=== PATIENT | female | born 1960 | race Hispanic/Latino ===

== ENCOUNTER 2017-12-06 00:05 | Emergency (ER) | payer OTHER ==
[~2017-12-06] VITALS: Ht 154.9 cm; Wt 49.0 kg
[~2017-12-06 00:05] MED LIST: ARIPIPRAZOLE; CLINDAMYCIN HC150 MG PO; DILAUDID4 MG PO; LORTAB; METHADONE HCL10 MG; NEXIUM40 MG PO; TYLENOL WITH C1 EACH PO; Z.0.ATIVAN1 MG; Z.0.LORTAB 7.5-5001; Z.0.ZOLOFT100 MG; [UNRECOGNIZED DRUG - OTHER]
--- NOTE | 2017-12-06 01:18 | Diagnostic Imaging Report ---
Exams: Head and cervical spine CTs without IV contrast History: Trauma Comparison studies: Head CT 05/19/2014. Technique: Axial images were obtained from the brain and cervical spine. Coronal and sagittal images reconstructed from the axial data. Intravenous contrast: None Findings: Head CT: Scalp: No abnormalities. Bones: No fractures, blastic or lytic lesions. Extra-axial spaces: No masses. No fluid collections. Brain sulci: Appropriate for age. Ventricles: Normal in size and configuration. No hydrocephalus. Parenchyma: A few scattered hypodensities in the supratentorial white matter are nonspecific but most compatible with chronic small vessel ischemic changes. No masses, hemorrhage, acute or chronic vascular insults. Sellar/suprasellar region: No abnormalities. Craniocervical junction: The foramen magnum is patent. No Chiari one malformation. Cervical spine CT: Fractures: None. Soft tissues: No gross acute abnormalities. Atlantoaxial articulation: Intact. Alignment: Strain cervical curvature may be positional. Mild cervical curvature convex to the right. Approximately 2 mm anterolisthesis of C5 on C6 may be degenerative in etiology. Cervicomedullary junction: No abnormalities. The foramen magnum is patent. Vertebrae: No infection or neoplasm. Degenerative changes: Moderate facet arthrosis on the left at C2-C3, mild facet arthrosis bilaterally at C3-C4 and on the left at C4-C5 and severe facet arthrosis on the left at C5-C6. Anterolisthesis of C5 on C6 with associated uncovered disc and small central disc protrusion result in mild canal stenosis. Mild foraminal stenosis on the left at C2-C3 due to uncovertebral and facet arthrosis. Incidental findings: Physiologic calcifications in the globi pallidi. Atherosclerotic calcifications in the cervical carotid bulbs, in the carotid siphons an right intradural vertebral artery. IMPRESSION: Head CT: 1. No acute abnormalities. 2. Mild supratentorial chronic microvascular ischemic changes. 3. No changes from the previous head CT of 05/19/2014. Cervical spine CT: 1. No cervical spine fracture. 2. Mild anterolisthesis of C5 on C6 may be degenerative in etiology. 3. Degenerative changes as described. 4. Cannot adequately evaluate for ligament, spinal cord and or vascular abnormalities on the basis of this examination. Signed by: Dr. Reggie Colmenares M.D. on 12/06/2017 1:15 AM
[2017-12-06] MEDS ORDERED: ONDANSETRON HCL 4 MG ORAL DISINTEGRATING TAB PO ONE (01:45)
[2017-12-06] MEDS ORDERED: HYDROCODONE/APAP 5MG-325MG TAB PO ONE (01:45)
[2017-12-06 04:09] VITALS: BP 112/62
[2017-12-06] MEDS ORDERED: SODIUM BICARBONATE 8.4% SYRING 50 ML ONE (08:05)
== END 2017-12-06 05:31 | disposition home or self-care (01) ==
LOC: ER 00:05
DX: S00.83XA Contusion of other part of head, initial encounter (principal); M54.2 Cervicalgia; Y08.89XA Assault by other specified means, initial encounter; Y92.008 Other place in unspecified non-institutional (private) residence as the place of occurrence of the external cause; F17.210 Nicotine dependence, cigarettes, uncomplicated
CPT/HCPCS: 70450; 72125; 99283

== ENCOUNTER 2017-12-28 02:43 | Emergency (ER) | payer OTHER ==
[~2017-12-28] VITALS: Ht 154.9 cm; Wt 49.0 kg
[2017-12-28] MEDS ORDERED: CLONIDINE HCL 0.1 MG TAB PO ONE (03:45)
== END 2017-12-28 04:20 | disposition left against medical advice (07) ==
LOC: ER 02:43
DX: R51 Headache (principal); F31.9 Bipolar disorder, unspecified; F17.210 Nicotine dependence, cigarettes, uncomplicated
CPT/HCPCS: 99282; 99283

== ENCOUNTER 2018-01-12 10:26 | Emergency (ER) | payer OTHER ==
[~2018-01-12] VITALS: Ht 154.9 cm; Wt 49.0 kg
[2018-01-12] MEDS ORDERED: LABETALOL HCL IV 5 MG/ML 20ML MDV IV STA (10:49)
[2018-01-12] MEDS ORDERED: LORAZEPAM INJ 2 MG/ML VIAL IV ONE (11:00)
== END 2018-01-12 11:30 | disposition left against medical advice (07) ==
LOC: ER 10:26
DX: F22 Delusional disorders (principal); F41.1 Generalized anxiety disorder
CPT/HCPCS: 93005

== ENCOUNTER 2018-01-24 10:44 | Emergency (ER) | payer OTHER ==
[~2018-01-24] VITALS: Ht 154.9 cm; Wt 49.0 kg
--- OUTSIDE RECORDS SUMMARY | 2018-01-24 10:47 | XMS REPORT | Continuity of Care Document ---
Author Author [facility] Organization [facility] Address [address] [place] [address] Phone Unavailable Care Team Providers Care Gusset Stitcher Name Role Phone MARIANA LARSON PCP Insurance Providers Guarantor Tex Hilario Address [address] [place] [address] Email [email or web address] [employer] [facility] Policy Number [id number] Subscriber's Name Tex Hilario Relationship 18 Self / Same As Patient Group Number [id number] Group Name UNEMPLOYED Effective Date 12 Advance Directives Directive Response Recorded Date/Time Does the patient have an advance directive? No 02/05/16 8:45pm If yes, is advance directive on file with [facility]? No 02/05/16 8:45pm If not on file with [facility] will patient provide a copy? No 11/24/16 3:05am Do you have a Directive to Physician? No 12/28/17 4:19am Do you have a Medical Power of Last Greaser? No 12/28/17 4:19am Do you have an out of hospital Do Not Resuscitate Order? No 12/28/17 4:19am Do you have any special needs we should be aware of? No 02/04/18 4:19am Do you have a support person here with you today? Yes 12/28/17 4:19am Did patient receive Notice of Privacy Practices? Yes 12/28/17 4:19am Did patient receive patient rights and responsibilities? Yes 12/28/17 4:19am Problems Medical Problem Onset Date Status Abscess of ring finger 02/05/2016 Acute Bronchitis Unknown Acute Chest pain Unknown Acute Chronic back pain Unknown Acute Hip pain Unknown Acute Opioid withdrawal Unknown Acute Vomiting Unknown Acute Medications Current Home Medications Medication Dose Units Route Directions Days Qty Instructions Start Date Acetaminophen With Codeine (Tylenol With Codeine #3 Tablet) 1 Each Tablet 300 Mg Oral Every 6 Hours for Pain Clindamycin Hcl 150 Mg Capsule 300 Mg Oral Every 8 Hours 30 Lorazepam (Ativan) 1 Mg Tablet Three Times A Day Past Home Medications Medication Directions Ordered Status Esomeprazole Magnesium (Nexium) 40 Mg Capsule.dr, 40 Mg Oral Daily Discontinued Hydrocodone Bit/Acetaminophen (Lortab 7.5-500 Tablet) 1 Each Tablet, Four Times Daily Discontinued Hydromorphone Hcl (Dilaudid) 4 Mg Tablet, 4 Mg Oral As Needed Discontinued Lortab , Discontinued Methadone Hcl 10 Mg Tablet, 100 Mg Pe Discontinued Sertraline Hcl (Zoloft) 100 Mg Tablet, Daily Discontinued Social History Social History Problem Response Recorded Date/Time Onset Date Status Hx Psychiatric Problems Yes 02/05/2016 8:45pm Not Applicable Not Applicable Hx Depression Yes 02/05/2016 8:45pm Not Applicable Not Applicable Hospital Discharge Instructions No hospital discharge instruction information available. Plan of Care Discharge Date 12/28/17 4:20am Disposition AGAINST MEDICAL ADVICE Condition at Discharge Stable Instructions/Education Provided Headache Forms Provided Work/School Excuse Prescriptions See Medication Section Functional Status No functional status information available. Allergies, Adverse Reactions, Alerts Allergen Type Severity Reaction Status Last Updated Penicillin Allergy Intermediate BREAK OUT Active 05/09/17 Tramadol Allergy Mild 'JACKS WITH ULCERS, GIVES ME CHEST PAIN' Active Immunizations No immunization information available. Vital Signs Acute Vital Signs Vital Response Date/Time Temperature (Fahrenheit) 97.2 degrees F (97.6 - 99.5) 12/06/2017 4:09am Pulse Pulse Rate (adult) 72 bpm (60 - 90) 12/06/2017 4:09am Respiratory Rate 17 bpm (12 - 24) 12/06/2017 4:09am Blood Pressure 112/62 mm Hg 12/06/2017 4:09am Height 5 ft 1 in 12/28/2017 3:19am Weight 108 lb 12/28/2017 3:19am Body Mass Index 20.4 kg/m^2 12/28/2017 3:19am Results Laboratory Results Test Name Result Units Flags Reference Collection Date/Time Result Date/ Time Comments White Blood Count 11.87 x10e3/uL H 4.8-10.8 05/09/2017 11:2016 11:19am Red Blood Count 3.99 x10e6/uL 3.6-5.1 05/09/2017 11:05/09/2017 11: 19am Hemoglobin 11.3 g/dL L 12.0-16.0 05/09/2017 11:05/09/2017 11:19am Hematocrit 34.6 % 34.2-44.1 05/09/2017 11:05/09/2017 11:19am Mean Corpuscular Volume 86.7 fL 81-99 05/09/2017 11:05/09/2017 11: 19am Mean Corpuscular Hemoglobin 28.3 pg 28-32 05/09/2017 11:2016 11:19am Mean Corpuscular Hemoglobin Concent 32.7 g/dL 31-35 05/09/2017 11:05/09/2017 11:19am Red Cell Distribution Width 12.8 % 11.7-14.4 05/09/2017 11:2016 11:19am Platelet Count 593 x10e3/uL H 140-360 05/09/2017 11:05/09/2017 11: 19am Neutrophils (%) (Auto) 59.8 % 38.7-80.0 05/09/2017 11:05/09/2017 11:19am Lymphocytes (%) (Auto) 27.8 % 18.0-39.1 05/09/2017 11:05/09/2017 11:19am Monocytes (%) (Auto) 7.8 % 4.4-11.3 05/09/2017 11:05/09/2017 11: 19am Eosinophils (%) (Auto) 3.9 % 0.0-6.0 05/09/2017 11:05/09/2017 11: 19am Basophils (%) (Auto) 0.4 % 0.0-1.0 05/09/2017 11:05/09/2017 11: 19am IM GRANULOCYTES % 0.3 % 0.0-1.0 05/09/2017 11:05/09/2017 11:19am Neutrophils # (Auto) 7.1 H 2.1-6.9 05/09/2017 11:05/09/2017 11: 19am Lymphocytes # (Auto) 3.3 H 1.0-3.2 05/09/2017 11:05/09/2017 11: 19am Monocytes # (Auto) 0.9 H 0.2-0.8 05/09/2017 11:05/09/2017 11: 19am Eosinophils # (Auto) 0.5 H 0.0-0.4 05/09/2017 11:05/09/2017 11: 19am Basophils # (Auto) 0.1 0.0-0.1 05/09/2017 11:05/09/2017 11:19am Absolute Immature Granulocyte (auto 0.03 x10e3/uL 0-0.1 05/09/2017 11: 05/09/2017 11:19am Prothrombin Time 13.7 seconds 11.9-14.5 05/09/2017 11:05/09/2017 11:39am Prothromb Time International Ratio 1.00 05/09/2017 11:2016 11:39am Oral Anticoagulant Therapy INR Values: 1. Low Intensity Therapy 1.5 - 2.0 2. Moderate Intensity Therapy 2.0 - 3.0 3. High Intensity Therapy(1) 2.5 - 3.5 4. High Intensity Therapy(2) 3.0 - 4.0 5. Panic Value INR > 5.0 Activated Partial Thromboplast Time 35.2 seconds 23.8-35.5 05/09/2017 11 :05/09/2017 11:39am Urine Color YELLOW YELLOW 05/09/2017 11:05/09/2017 12:14pm Urine Clarity SL CLOUDY CLEAR 05/09/2017 11:05/09/2017 12:14pm Urine Specific [place] 1.025 1.010-1.025 05/09/2017 11:01am 2016 12:14pm Urine pH 5 5 - 7 05/09/2017 11:01am 05/09/2017 12:14pm Urine Leukocyte Esterase 2+ H NEGATIVE 05/09/2017 11:01am 05/09/2017 12:14pm Urine Nitrite NEGATIVE NEGATIVE 05/09/2017 11:01am 05/09/2017 12: 14pm Urine Protein NEGATIVE NEGATIVE 05/09/2017 11:01am 05/09/2017 12: 14pm Urine Glucose (UA) NEGATIVE NEGATIVE 05/09/2017 11:01am 05/09/2017 12 :14pm Urine Ketones NEGATIVE NEGATIVE 05/09/2017 11:01am 05/09/2017 12: 14pm Urine Opiates Screen POSITIVE H NEGATIVE 05/09/2017 11:03am 2016 12:13pm This test provides only a screen. Positive results should be repeated by a confirmatory test.ALL TESTS PERFORMED MANUALLY ON SIGNIFY ER TEST Urine Barbiturates Screen NEGATIVE NEGATIVE 05/09/2017 11:03am 2016 12:13pm Urine Phencyclidine Screen NEGATIVE NEGATIVE 05/09/2017 11:03am 05/09 12:13pm Urine Amphetamines Screen POSITIVE H NEGATIVE 05/09/2017 11:03am 05/09 12:13pm This test provides only a screen. Positive results should be repeated by a confirmatory test. Urine Benzodiazepines Screen POSITIVE H NEGATIVE 05/09/2017 11:03am 12:13pm This test provides only a screen. Positive results should be repeated by a confirmatory test. Urine Cocaine Screen POSITIVE H NEGATIVE 05/09/2017 11:03am 2016 12:13pm This test provides only a screen. Positive results should be repeated by a confirmatory test. Urine Cannabinoids Screen POSITIVE H NEGATIVE 05/09/2017 11:03am 05/09 12:13pm This test provides only a screen. Positive results should be repeated by a confirmatory test. Urine Urobilinogen 0.2 mg/dL 0.2 - 1 05/09/2017 11:01am 05/09/2017 12: 14pm Urine Bilirubin NEGATIVE NEGATIVE 05/09/2017 11:01am 05/09/2017 12: 14pm Urine Blood NEGATIVE NEGATIVE 05/09/2017 11:0105/09/2017 12:14pm Urine WBC 11-20 /HPF H 0-5 05/09/2017 11:05/09/2017 12:39pm Urine RBC NONE /HPF 0-5 05/09/2017 11:05/09/2017 12:39pm Urine Bacteria NONE /HPF NONE 05/09/2017 11:0105/09/2017 12:39pm Urine Epithelial Cells RARE /LPF NONE 05/09/2017 11:05/09/2017 12: 39pm Urine Calcium Oxalate Crystals FEW FEW 05/09/2017 11:0105/09/2017 12:39pm Urine Amorphous Sediment RARE FEW 05/09/2017 11:05/09/2017 12: 39pm Urine Hyaline Casts 2-5 H 0-1 05/09/2017 11:0105/09/2017 12:39pm Sodium Level 141 mmol/L 136-145 05/09/2017 11:05/09/2017 11:40am Potassium Level 4.1 mmol/L 3.5-5.1 05/09/2017 11:0105/09/2017 11: 40am Chloride Level 108 mmol/L H 98-107 05/09/2017 11:05/09/2017 11: 40am Carbon Dioxide Level 26 mmol/L 22-29 05/09/2017 11:05/09/2017 11: 40am Anion Gap 11.1 mmol/L 8-16 05/09/2017 11:0105/09/2017 11:40am Blood Urea Nitrogen 20 mg/dL 7-05/09/2017 11:05/09/2017 11: 40am Creatinine 0.73 mg/dL 0.57-1.11 05/09/2017 11:05/09/2017 11:40am BUN/Creatinine Ratio 27 H 6-05/09/2017 11:05/09/2017 11:40am Estimat Glomerular Filtration Rate > 60 ML/MIN 60- 05/09/2017 11:0105/09/2017 11:40am Ranges were taken from the National Kidney Disease Education Program and the National Kid[employer] Foundation literature. Reference ranges: 60 or greater: Normal 16-59 (for 3 consecutive months): Chronic kidney disease 15 or less: Kidney failure Glucose Level 106 mg/dL 74-118 05/09/2017 11:05/09/2017 11:40am Calcium Level 9.0 mg/dL 8.4-10.2 05/09/2017 11:05/09/2017 11:40am Magnesium Level 2.1 MG/DL 1.3-2.1 05/09/2017 11:05/09/2017 11: 40am Total Bilirubin 0.2 mg/dL 0.2-1.2 05/09/2017 11:05/09/2017 11: 40am Aspartate Amino Transf (AST/SGOT) 17 IU/L 5-34 05/09/2017 11:05/09 11:40am Alanine Aminotransferase (ALT/SGPT) 12 IU/L 0-55 05/09/2017 11: 11:40am Total Protein 7.5 g/dL 6.5-8.1 05/09/2017 11:05/09/2017 11:40am Albumin 3.6 g/dL 3.5-5.0 05/09/2017 11:05/09/2017 11:40am Globulin 3.9 g/dL H 2.3-3.5 05/09/2017 11:05/09/2017 11:40am Albumin/Globulin Ratio 0.9 0.8-2.0 05/09/2017 11:05/09/2017 11: 40am Alkaline Phosphatase 101 IU/L 40-150 05/09/2017 11:05/09/2017 11: 40am B-Type Natriuretic Peptide < 10.0 pg/mL 0-100 05/09/2017 11:2016 12:26pm Creatine Kinase 55 IU/L 29-168 05/09/2017 11:05/09/2017 11:40am Creatine Kinase MB 2.00 ng/mL 0.00-5.00 05/09/2017 11:05/09/2017 12:34pm Troponin I 0.006 ng/mL 0-0.300 05/09/2017 11:05/09/2017 12:34pm Lipase 14 U/L 8-78 05/09/2017 11:05/09/2017 11:40am Acetaminophen Level < 3 ug/mL L 10-30 05/09/2017 11:01am 05/09/2017 11: 57am Thyroid Stimulating Hormone (TSH) 3.421 uIU/mL 0.350-4.940 05/09/2017 11 :01am 05/09/2017 12:34pm Ethyl Alcohol Level < 10.0 mg/dL 0.0-10.0 05/09/2017 11:01am 2016 11:57am Salicylates Level < 5.0 mg/dL 0-30 05/09/2017 11:01am 05/09/2017 12: 00pm Procedures Procedure Status Date Provider(s) Computed tomography of brain without radiopaque contrast Active 12/06/17 MAYO CONNER MD Computed tomography of cervical spine without contrast Active 12/06/17 MAYO CONNER MD Encounters Encounter Location Arrival/Admit Date Discharge/Depart Date Attending Provider Departed Emergency Room [facility] 12/28/17 2:43am 4:20am LIZ HUGGINS MD Departed Emergency Room [facility]'s Patients [facility] 12/06/17 12:05am 12/06 5:31am MAYO CONNER MD Departed Emergency Room [facility]'s [facility] 05/09/17 10:31am 05/09 1:54pm CELSO FERRELL
--- OUTSIDE RECORDS SUMMARY | 2018-01-24 10:47 | XMS REPORT ---
[facility] Address Unknown Phone Unavailable Care Team Providers Care Alining Inspector Name Role Phone MAYO CONNER Unavailable Unavailable Problems This patient has no known problems. Allergies, Adverse Reactions, Alerts This patient has no known allergies or adverse reactions. Medications This patient has no known medications. Results Test Description Test Time Test Comments Text Results Atomic Results Result Comments CT CERVICAL SPINE WO [address] [address] Patient Name: TEX HARTMAN MR #: [id number] : 1960 Age/Sex: 57/F Req #: [id number] Adm Physician: Ordered by: MAYO CONNER MD Report #: [id number] Location: ER Room/Bed: Procedure: [id number] CT/CT CERVICAL SPINE WO Exam Date: 12/06/17 Exam Time: 0025 REPORT STATUS: Signed Exams: Head and cervical spine CTs without IV contrast History: Trauma Comparison studies: Head CT 05/19/2014. Technique: Axial images were obtained from the brain and cervical spine. Coronal and sagittal images reconstructed from the axial data. Intravenous contrast: None Findings: Head CT: Scalp: No abnormalities. Bones: No fractures, blastic or lytic lesions. Extra- axial spaces: No masses. No fluid collections. Brain sulci: Appropriate for age. Ventricles: Normal in size and configuration. No hydrocephalus. Parenchyma: A few scattered hypodensities in the supratentorial white matter are nonspecific but most compatible with chronic small vessel ischemic changes. No masses, hemorrhage, acute or chronic vascular insults. Sellar/suprasellar region: No abnormalities. Craniocervical junction: The foramen magnum is patent. No Chiari one malformation. Cervical spine CT : Fractures: None. Soft tissues: No gross acute abnormalities. Atlantoaxial articulation: Intact. Alignment: Strain cervical curvature may be positional. Mild cervical curvature convex to the right. Approximately 2 mm anterolisthesis of C5 on C6 may be degenerative in etiology. Cervicomedullary junction: No abnormalities. The foramen magnum is patent. Vertebrae: No infection or neoplasm. Degenerative changes: Moderate facet arthrosis on the left at C2-C3, mild facet arthrosis bilaterally at C3- C4 and on the left at C4-C5 and severe facet arthrosis on the left at C5-C6. Anterolisthesis of C5 on C6 with associated uncovered disc and small central disc protrusion result in mild canal stenosis. Mild foraminal stenosis on the left at C2-C3 due to uncovertebral and facet arthrosis. Incidental findings : Physiologic calcifications in the globi pallidi. Atherosclerotic calcifications in the cervical carotid bulbs, in the carotid siphons an right intradural vertebral artery. IMPRESSION: Head CT: 1. No acute abnormalities. 2. Mild supratentorial chronic microvascular ischemic changes. 3. No changes from the previous head CT of 05/19/2014. Cervical spine CT: 1. No cervical spine fracture. 2. Mild anterolisthesis of C5 on C6 may be degenerative in etiology. 3. Degenerative changes as described. 4. Cannot adequately evaluate for ligament, spinal cord and or vascular abnormalities on the basis of this examination. Signed by: Dr. Konrad Colmenares M.D. on 12/06/2017 6:52 AM Dictated By: KONRAD COLMENARES MD Transcribed By: SHAYLEE on 12/06/1752 COPY TO: MAYO CONNER MD CT BRAIN WO [place] [address] Patient Name: TEX HARTMAN MR #: [id number] : 1960 Age/Sex: 57/F Req # : [id number] Adm Physician: Ordered by: MAYO CONNER MD Report #: [id number] Location: ER Room/Bed: Procedure: [id number] CT/CT BRAIN WO Exam Date: 12/06/17 Exam Time: 0025 REPORT STATUS: Signed Exams: Head and cervical spine CTs without IV contrast History: Trauma Comparison studies: Head CT 05/19/2014. Technique: Axial images were obtained from the brain and cervical spine. Coronal and sagittal images reconstructed from the axial data. Intravenous contrast: None Findings: Head CT: Scalp: No abnormalities. Bones: No fractures, blastic or lytic lesions. Extra-axial spaces: No masses. No fluid collections. Brain sulci: Appropriate for age. Ventricles: Normal in size and configuration. No hydrocephalus. Parenchyma : A few scattered hypodensities in the supratentorial white matter are nonspecific but most compatible with chronic small vessel ischemic changes. No masses, hemorrhage, acute or chronic vascular insults. Sellar/ suprasellar region: No abnormalities. Craniocervical junction: The foramen magnum is patent. No Chiari one malformation. Cervical spine CT: Fractures: None. Soft tissues: No gross acute abnormalities. Atlantoaxial articulation: Intact. Alignment: Strain cervical curvature may be positional. Mild cervical curvature convex to the right. Approximately 2 mm anterolisthesis of C5 on C6 may be degenerative in etiology. Cervicomedullary junction: No abnormalities. The foramen magnum is patent. Vertebrae: No infection or neoplasm. Degenerative changes: Moderate facet arthrosis on the left at C2-C3, mild facet arthrosis bilaterally at C3- C4 and on the left at C4-C5 and severe facet arthrosis on the left at C5-C6. Anterolisthesis of C5 on C6 with associated uncovered disc and small central disc protrusion result in mild canal stenosis. Mild foraminal stenosis on the left at C2-C3 due to uncovertebral and facet arthrosis. Incidental findings : Physiologic calcifications in the globi pallidi. Atherosclerotic calcifications in the cervical carotid bulbs, in the carotid siphons an right intradural vertebral artery. IMPRESSION: Head CT: 1. No acute abnormalities. 2. Mild supratentorial chronic microvascular ischemic changes. 3. No changes from the previous head CT of 05/19/2014. Cervical spine CT: 1. No cervical spine fracture. 2. Mild anterolisthesis of C5 on C6 may be degenerative in etiology. 3. Degenerative changes as described. 4. Cannot adequately evaluate for ligament, spinal cord and or vascular abnormalities on the basis of this examination. Signed by: Dr. Konrad Colmenares M.D. on 12/06/2017 1:15 AM Dictated By: KONRAD COLMENARES MD 4 Transcribed By: SHAYLEE on 12/06/17114 COPY TO: MAYO CONNER MD
[2018-01-24] MEDS ORDERED: ACETAMINOPHEN/CODEINE 300MG - 30MG TAB PO NR (11:30)
--- NOTE | 2018-01-24 12:56 | Diagnostic Imaging Report ---
RIGHT FOOT X-RAY - 3 VIEWS HISTORY: \S\r/o osteo / fx \[id number] \S\[id number] COMPARISON: None available. FINDINGS: Bones: Post traumatic deformity of the calcaneus with associated fragmentation and sclerosis of the bone. Osseous alignment is within normal limits. Joints: Degenerative changes of the right foot. Soft tissues: The soft tissues appear unremarkable. IMPRESSION: Fragmentation and sclerosis of the calcaneus may be consistent with clinical suspicious for osteomyelitis. MRI of the right foot with and without contrast can be helpful for further evaluation. Signed by: Dr. Diana Mock M.D. on 01/24/2018 12:52 PM
--- NOTE | 2018-01-24 12:56 | Diagnostic Imaging Report ---
RIGHT ANKLE X-RAY - 3 VIEWS HISTORY: \S\r/o fx osteomylitis \[id number] \S\[id number] COMPARISON: None available. FINDINGS: Bones: No acute displaced fracture. Osseous alignment is within normal limits. Joints: Degenerative changes of the mortise. Soft tissues: The soft tissues appear unremarkable. IMPRESSION: No acute radiographic abnormality of the right ankle. See also report of right foot x-ray. Signed by: Dr. Diana Mock M.D. on 01/24/2018 12:53 PM
== END 2018-01-24 13:55 | disposition home or self-care (01) ==
LOC: ER 10:44
DX: M25.571 Pain in right ankle and joints of right foot (principal); G89.29 Other chronic pain
CPT/HCPCS: 99283

== ENCOUNTER 2018-02-02 00:29 | Emergency (ER) | payer OTHER ==
[~2018-02-02] VITALS: Ht 154.9 cm; Wt 49.0 kg
--- OUTSIDE RECORDS SUMMARY | 2018-02-02 00:33 | XMS REPORT | Continuity of Care Document ---
Author Author [facility] Organization [facility] Address [address] [place] [address] Phone Unavailable Care Team Providers Care Area Attendant Name Role Phone NEO MARIANA PCP Insurance Providers Guarantor Tex Hilario Address [address] [place] [address] Payer [facility] [employer] Policy Number [id number] Subscriber's Name Tex Hilario Relationship 18 Self / Same As Patient Group Number [id number] Group Name UNEMPLOYED Effective Date 12 Payer [facility] Policy Number [id number] Subscriber's Name Tex Hilario Relationship 18 Self / Same As Patient Group Name UNEMPLOYED Advance Directives Directive Response Recorded Date/Time Does the patient have an advance directive? No 02/05/16 8:45pm If yes, is advance directive on file with [facility]? No 02/05/16 8:45pm If not on file with [facility] will patient provide a copy? No 11/24/16 3:05am Problems Medical Problem Onset Date Status Abscess [...] Yes 02/05/2016 8:45pm Not Applicable Not Applicable Smoking Status Start Date Stop Date Current every day smoker Hospital Discharge Instructions No hospital discharge instruction information available. Plan of Care Discharge Date 01/24/18 1:55pm Disposition HOME, SELF-CARE Condition at Discharge Stable Instructions/Education Provided Chronic Pain Forms Provided Work/School Excuse Prescriptions See Medication Section Referrals MARIANA LARSON Address: [address] [place] [address] Additional Instructions/Education 1. right foot pain - acewrap - crutches 2. follow up with orthopedic doctor in 1-2 days without fail 3. return to ed as needed Functional Status No functional status information available. [...] 12/06/2017 4:09am Height 5 ft 1 in 01/24/2018 10:47am Weight 108 lb 01/24/2018 10:47am Body Mass Index 20.4 kg/m^2 01/24/2018 10:47am Results Laboratory Results Test Name Result Units [...] CLOUDY CLEAR 05/09/2017 11:05/09/2017 12:14pm Urine Specific [place] 1.025 1.010-1.025 05/09/2017 11:2016 12:14pm Urine pH 5 5 - 7 [...] 12: 14pm Urine Blood NEGATIVE NEGATIVE 05/09/2017 11:01am 05/09/2017 12:14pm Urine WBC 11-20 /HPF H 0-5 05/09/2017 11:05/09/2017 12:39pm Urine RBC NONE /HPF 0-5 05/09/2017 11:05/09/2017 12:39pm Urine Bacteria NONE /HPF NONE 05/09/2017 11:05/09/2017 12:39pm Urine Epithelial Cells RARE /LPF NONE 05/09/2017 11:05/09/2017 12: 39pm Urine Calcium Oxalate Crystals FEW FEW 05/09/2017 11:05/09/2017 12:39pm Urine Amorphous Sediment RARE FEW 05/09/2017 11:05/09/2017 12: 39pm Urine Hyaline Casts 2-5 H 0-1 05/09/2017 11:05/09/2017 12:39pm Sodium Level 141 mmol/L 136-145 05/09/2017 11:05/09/2017 11:40am Potassium Level 4.1 mmol/L 3.5-5.1 05/09/2017 11:05/09/2017 11: 40am Chloride Level 108 mmol/L H 98-107 05/09/2017 11:05/09/2017 11: 40am Carbon Dioxide Level 26 mmol/L 22-29 05/09/2017 11:05/09/2017 11: 40am Anion Gap 11.1 mmol/L 8-16 05/09/2017 11:05/09/2017 11:40am Blood Urea Nitrogen 20 mg/dL 7-05/09/2017 11:05/09/2017 11: 40am Creatinine 0.73 mg/dL 0.57-1.11 05/09/2017 11:05/09/2017 11:40am BUN/Creatinine Ratio 27 H 6-05/09/2017 11:05/09/2017 11:40am Estimat Glomerular Filtration Rate > 60 ML/MIN 60- 05/09/2017 11:05/09/2017 11:40am Ranges were taken from the National [...] Level < 3 ug/mL L 10-30 05/09/2017 11:05/09/2017 11: 57am Thyroid Stimulating Hormone (TSH) 3.421 [...] Discharge/Depart Date Attending Provider Departed Emergency Room [facility] 01/24/18 10:44am 01/24 1:55pm GURWINDER MARVIN MD Departed Emergency Room [facility] 01/12/18 10:26am 01/12 11:30am MARTHA DUARTE MD Departed Emergency Room [facility] 12/28/17 2:43am 4:20am LIZ HUGGINS MD Departed Emergency Room [facility] 12/06/17 12:05am 12/06 5:31am MAYO CONNER MD Departed Emergency Room [facility] 05/09/17 10:31am 05/09 1:54pm CELSO FERRELL
== END 2018-02-02 01:03 | disposition left against medical advice (07) ==
LOC: ER 00:29
DX: R07.9 Chest pain, unspecified (principal)
CPT/HCPCS: 93005

== ENCOUNTER 2018-02-26 23:25 | Emergency (ER) | payer OTHER ==
[~2018-02-26] VITALS: Ht 154.9 cm; Wt 45.4 kg
--- OUTSIDE RECORDS SUMMARY | 2018-02-26 23:28 | XMS REPORT | Continuity of Care Document ---
Author Author [facility] Organization [facility] Address [address] [address] Phone Unavailable Care Team Providers Care Judge Name Role Phone MARIANA LARSON DO PCP Insurance Providers Guarantor Tex Hilario Address [address] [place] [address] Email [email or web address] [email or web address] [facility] Policy Number [id number] Subscriber's Name Tex Hilario Relationship 18 Self / Same As Patient Group Number [id number] Group Name UNEMPLOYED Effective Date 12 Advance Directives Directive Response Recorded Date/Time Does the patient have an advance directive? No 02/05/16 8:45pm If yes, is advance directive on file with [facility]? No 02/05/16 8:45pm If not on file with [facility] will patient provide a copy? Yes 02/02/18 12:53am Do you have a Directive to Physician? No 02/02/18 12:53am Do you have a Medical Power of Pecan Grower? No 02/02/18 12:53am Do you have an out of hospital Do Not Resuscitate Order? No 02/02/18 12:53am Do you have any special needs we should be aware of? No 03/12/18 12:53am Do you have a support person here with you today? Yes 02/02/18 12:53am Did patient receive Notice of Privacy Practices? Yes 02/02/18 12:53am Did patient receive patient rights and responsibilities? Yes 02/02/18 12:53am Problems Medical Problem Onset Date Status Abscess [...] information available. Plan of Care Discharge Date 02/02/18 1:03am Disposition LEFT AFTER MEDICAL SCREENING Condition at Discharge Stable Forms Provided Work/School Excuse Prescriptions See Medication [...] 12/06/2017 4:09am Height 5 ft 1 in 02/02/2018 12:44am Weight 108 lb 02/02/2018 12:44am Body Mass Index 20.4 kg/m^2 02/02/2018 12:44am Results Laboratory Results Test Name Result Units [...] CLOUDY CLEAR 05/09/2017 11:05/09/2017 12:14pm Urine Specific [place] 1.025 1.010-1.025 05/09/2017 11:01am 2016 12:14pm Urine pH 5 5 - 7 05/09/2017 11:01am 05/09/2017 12:14pm Urine Leukocyte Esterase 2+ H NEGATIVE 05/09/2017 11:01am 05/09/2017 12:14pm Urine Nitrite NEGATIVE NEGATIVE 05/09/2017 11:01am 05/09/2017 12: 14pm Urine Protein NEGATIVE NEGATIVE 05/09/2017 11:0105/09/2017 12: 14pm Urine Glucose (UA) NEGATIVE NEGATIVE [...] 12: 14pm Urine Bilirubin NEGATIVE NEGATIVE 05/09/2017 11:0105/09/2017 12: 14pm Urine Blood NEGATIVE NEGATIVE 05/09/2017 11:0105/09/2017 12:14pm Urine WBC 11-20 /HPF H 0-5 05/09/2017 11:05/09/2017 12:39pm Urine RBC NONE /HPF 0-5 05/09/2017 11:0105/09/2017 12:39pm Urine Bacteria NONE /HPF NONE 05/09/2017 [...] 11: 40am Carbon Dioxide Level 26 mmol/L 22-05/09/2017 11:05/09/2017 11: 40am Anion Gap 11.1 mmol/L 8-05/09/2017 11:0105/09/2017 11:40am Blood Urea Nitrogen 20 mg/dL 7-05/09/2017 11:05/09/2017 11: 40am Creatinine 0.73 mg/dL 0.57-1.11 05/09/2017 11:0105/09/2017 11:40am BUN/Creatinine Ratio 27 H 6-05/09/2017 11:0105/09/2017 11:40am Estimat Glomerular Filtration Rate > 60 [...] 11:05/09/2017 12:34pm Lipase 14 U/L 8-78 05/09/2017 11:01am 05/09/2017 11:40am Acetaminophen Level < 3 ug/mL L [...] Discharge/Depart Date Attending Provider Departed [facility] 02/02/18 12:29am 02/02 1:03am LIZ HUGGINS MD [facility] 01/24/18 10:44am 01/24 1:55pm GURWINDER MARVIN MD Departed Emergency [facility] 01/12/18 10:26am 01/12 11:30am MARTHA DUARTE MD Departed Emergency [facility] 12/28/17 2:43am 4:20am LIZ HUGGINS MD Departed Emergency [facility] 12/06/17 12:05am 12/06 5:31am MAYO CONNER MD Departed Emergency [facility] 05/09/17 10:31am 05/09 1:54pm CELSO FERRELL
--- NOTE | 2018-02-27 00:31 | Diagnostic Imaging Report ---
EXAMINATION: Head and cervical spine CT without contrast. HISTORY: Head trauma, head and neck pain COMPARISON: None. TECHNIQUE: Multidetector axial images were obtained without contrast from the foramen magnum to the vertex and through the cervical spine. The images were reconstructed using brain and bone algorithms. Thin section brain images were reformatted into coronal and sagittal planes. HEAD CT FINDINGS: Skull: No lytic or blastic lesions. No fractures. Parenchyma: Normal. No mass, hemorrhage or CT evidence of acute vascular insult. Brain volume: Normal for age. Ventricles: No hydrocephalus or displacement. Arteries: No density suggestive of thrombus. Dural sinuses: No abnormal density. Extra-axial spaces: No abnormal density. Foramen magnum: No mass, Chiari malformation, or basilar invagination. Sella: No obvious mass. Paranasal/mastoid sinuses: Imaged portions unremarkable. CERVICAL SPINE CT FINDINGS: Alignment:Normal alignment and lordosis. Soft tissues: Normal. Vertebrae: Normal height and density. No acute fracture, infection or neoplasm. Degenerative changes: C1-C2: Mild degenerative changes without stenosis.. C2-C3: Minimal symmetric disc bulge and bilateral facet arthrosis without stenosis. C3-C4: Minimal symmetric disc bulge without significant. C4-C5: Normal. C5-C6: Minimal symmetric disc bulge. Prominent facet arthrosis mainly on the left with minimal anterolisthesis. No canal or foraminal stenosis.. C6-C7: Normal. C7-T1: Normal. IMPRESSION: Head CT: No acute post traumatic intracranial abnormalities, particularly no hemorrhage. Cervical spine CT: 1. No acute fractures or dislocations. 2. Mild chronic degenerative changes as described. Note: Acute post traumatic spinal cord, vascular or ligamentous injury cannot adequately be assessed with CT. Signed by: Dr. Ritu Cheema M.D. on 02/27/2018 12:28 AM
[2018-02-27 00:42] VITALS: BP 139/82
== END 2018-02-27 00:45 | disposition home or self-care (01) ==
LOC: ER 23:25
DX: S00.83XA Contusion of other part of head, initial encounter (principal); S16.1XXA Strain of muscle, fascia and tendon at neck level, initial encounter; Y04.0XXA Assault by unarmed brawl or fight, initial encounter; M19.90 Unspecified osteoarthritis, unspecified site; F17.210 Nicotine dependence, cigarettes, uncomplicated
CPT/HCPCS: 70450; 72125; 99282

== ENCOUNTER 2018-04-07 13:14 | Emergency (ER) | payer OTHER ==
[~2018-04-07] VITALS: Ht 154.9 cm; Wt 45.4 kg
--- OUTSIDE RECORDS SUMMARY | 2018-04-07 13:19 | XMS REPORT | Continuity of Care Document ---
Author Author [facility] Organization [facility] Address [address] [place] [address] Phone Unavailable Care Team Providers Care Clinical Associate Name Role Phone MARIANA LARSON DO PCP Insurance Providers Guarantor Tex Hilario Address [address] [place] [address] Email [email or web address] [employer] [facility] Policy Number [id number] Subscriber's Name Tex Hilario Relationship 18 Self / Same As Patient Group Number [id number] Group Name UNEMPLOYED Effective Date 12 Advance Directives Directive Response Recorded Date/Time Does the patient have an advance directive? No 02/05/16 8:45pm If yes, is advance directive on file with [facility]? No 02/05/16 8:45pm If not on file with [facility] will patient provide a copy? No 02/26/18 11:24pm Do you have a Directive to Physician? No 02/26/18 11:24pm Do you have a Medical Power of Professor Of Religious Studies? No 02/26/18 11:24pm Do you have an out of hospital Do Not Resuscitate Order? No 02/26/18 11:24pm Do you have any special needs we should be aware of? No 02/26/18 11:24pm Do you have a support person here with you today? No 02/26/18 11:24pm Did patient receive Notice of Privacy Practices? Yes 02/26/18 11:24pm Did patient receive patient rights and responsibilities? Yes 02/26/18 11:24pm Problems Medical Problem Onset Date Status Abscess [...] information available. Plan of Care Discharge Date 02/27/18 12:45am Disposition HOME, SELF-CARE Condition at Discharge Stable Instructions/Education Provided Strains Forms Provided Work/School Excuse Prescriptions See Medication Section Referrals MARIANA LARSON DO Address: [address] [place] [address] Additional Instructions/Education REST; FOLLOW UP WITH YOUR PCP Functional Status No functional status information available. Allergies, Adverse Reactions, Alerts Allergen Type Severity Reaction Status Last Updated Penicillin Allergy Intermediate BREAK OUT Active 05/09/17 Tramadol Allergy Mild 'JACKS WITH ULCERS, GIVES ME CHEST PAIN' Active Immunizations No immunization information available. Vital Signs Acute Vital Signs Vital Response Date/Time Temperature (Fahrenheit) 96.0 degrees F (97.6 - 99.5) 02/27/2018 12:42am Pulse Pulse Rate (adult) 93 bpm (60 - 90) 02/27/2018 12:42am Respiratory Rate 16 bpm (12 - 24) 02/27/2018 12:42am Blood Pressure 139/82 mm Hg 02/27/2018 12:42am Height 5 ft 1 in 02/26/2018 11:36pm Weight 100 lb 02/26/2018 11:36pm Body Mass Index 18.9 kg/m^2 02/26/2018 11:36pm Results Laboratory Results Test Name Result Units [...] :05/09/2017 11:39am Urine Color YELLOW YELLOW 05/09/2017 11:01am 05/09/2017 12:14pm Urine Clarity SL CLOUDY CLEAR 05/09/2017 11:01am 05/09/2017 12:14pm Urine Specific [place] 1.025 1.010-1.025 05/09/2017 11:01am 2016 12:14pm Urine [...] Urobilinogen 0.2 mg/dL 0.2 - 1 05/09/2017 11:0105/09/2017 12: 14pm Urine Bilirubin NEGATIVE NEGATIVE 05/09/2017 11:0105/09/2017 12: 14pm Urine Blood NEGATIVE NEGATIVE 05/09/2017 11:05/09/2017 12:14pm Urine WBC 11-20 /HPF H 0-5 05/09/2017 11:0105/09/2017 12:39pm Urine RBC NONE /HPF 0-5 05/09/2017 11:0105/09/2017 12:39pm Urine Bacteria NONE /HPF NONE 05/09/2017 11:0105/09/2017 12:39pm Urine Epithelial Cells RARE /LPF NONE 05/09/2017 11:0105/09/2017 12: 39pm Urine Calcium Oxalate Crystals FEW FEW 05/09/2017 11:0105/09/2017 12:39pm Urine Amorphous Sediment RARE FEW 05/09/2017 11:05/09/2017 12: 39pm Urine Hyaline Casts 2-5 H 0-1 05/09/2017 11:0105/09/2017 12:39pm Sodium Level 141 mmol/L 136-145 05/09/2017 11:0105/09/2017 11:40am Potassium Level 4.1 mmol/L 3.5-5.1 05/09/2017 11:05/09/2017 11: 40am Chloride Level 108 mmol/L H 98-107 05/09/2017 11:05/09/2017 11: 40am Carbon Dioxide Level 26 mmol/L 22-29 05/09/2017 11:05/09/2017 11: 40am Anion Gap 11.1 mmol/L 8-05/09/2017 11:05/09/2017 11:40am Blood Urea Nitrogen 20 mg/dL 7-05/09/2017 11:05/09/2017 11: 40am Creatinine 0.73 mg/dL 0.57-1.11 05/09/2017 11:05/09/2017 11:40am BUN/Creatinine Ratio 27 H 6-05/09/2017 11:0105/09/2017 [...] 12:34pm Troponin I 0.006 ng/mL 0-0.300 05/09/2017 11:01am 05/09/2017 12:34pm Lipase 14 U/L 8-78 05/09/2017 11:01am [...] without contrast Active 12/06/17 MAYO CONNER MD Computed tomography of brain without radiopaque contrast Active 02/26/18 MANUELITO MOTTA MD Computed tomography of cervical spine without contrast Active 02/26/18 MANUELITO MOTTA MD Encounters Encounter Location Arrival/Admit Date Discharge/Depart Date Attending Provider Departed Emergency Room [facility] 02/26/18 11:25pm 02/27 12:45am MANUELITO MOTTA MD Departed Emergency [facility] 02/02/18 12:29am 02/02 1:03am LIZ HUGGINS MD Departed Emergency [facility] 01/24/18 10:44am 01/24 1:55pm GURWINDER MARVIN MD Departed Emergency Room [facility] 01/12/18 10:26am 01/12 11:30am MARTHA DUARTE MD Departed Emergency [facility] 12/28/17 2:43am 4:20am LIZ HUGGINS MD Departed Emergency Room [facility] 12/06/17 12:05am 12/06 5:31am MAYO CONNER MD Departed Emergency Room [facility] 05/09/17 10:31am 05/09 1:54pm CELSO FERRELL
== END 2018-04-07 15:41 | disposition left against medical advice (07) ==
LOC: ER 13:14
DX: M25.512 Pain in left shoulder (principal); Z76.5 Malingerer [conscious simulation]
CPT/HCPCS: 99281

== ENCOUNTER 2018-05-18 21:38 | Emergency (ER) | payer OTHER ==
[~2018-05-18] VITALS: Ht 154.9 cm; Wt 45.4 kg
--- OUTSIDE RECORDS SUMMARY | 2018-08-26 14:37 | XMS REPORT | Continuity of Care Document ---
Author Author [facility] Organization [facility] Address [address] [place] [address] Phone Unavailable Care Team Providers Care Assembler For Puller Over Hand Name Role Phone MARIANA LARSON DO PCP Insurance Providers Guarantor Tex Hilario Address [address] [place] [address] Email [email or web address] Payer [facility] [employer] [facility] Policy Number [id number] Subscriber's Name Tex Hilario Relationship 18 Self / Same As Patient Group Number [id number] Group Name UNEMPLOYED Effective Date 12 Advance Directives Directive Response Recorded Date/Time Does the patient have an advance directive? No 02/05/16 8:45pm If yes, is advance directive on file with [facility]? No 02/05/16 8:45pm If not on file with [facility] will patient provide a copy? No 02/26/18 11:24pm Problems Medical Problem Onset Date [...] information available. Plan of Care Discharge Date 04/07/18 3:41pm Disposition AGAINST MEDICAL ADVICE Condition at Discharge Stable Instructions/Education Provided Back Pain Forms Provided Work/School Excuse Prescriptions See Medication Section Referrals MARIANA LARSON DO Address: [address] [place] [id number] Functional Status No functional status information available. Allergies, Adverse Reactions, Alerts Allergen Type Severity Reaction Status Last Updated Penicillin Allergy Intermediate BREAK OUT Active 04/07/18 Tramadol Allergy Mild 'JACKS WITH ULCERS, GIVES [...] 02/27/2018 12:42am Height 5 ft 1 in 04/07/2018 1:43pm Weight 100 lb 04/07/2018 1:43pm Body Mass Index 18.9 kg/m^2 04/07/2018 1:43pm Results No relevant diagnostic test, laboratory data and/or discharge summary information available. Procedures Procedure Status Date Provider(s) Computed tomography [...] Discharge/Depart Date Attending Provider Departed Emergency Room [facility] 04/07/18 1:14pm 3:41pm MARTHA DUARTE MD Departed Emergency Room [facility] 02/26/18 11:25pm 02/27 12:45am MANUELITO MOTTA MD Departed Emergency Room [facility] 02/02/18 12:29am 02/02 1:03am LIZ HUGGINS MD Departed Emergency Room [facility] 01/24/18 10:44am 01/24 1:55pm GURWINDER MARVIN MD Departed Emergency Room [facility] 01/12/18 10:26am 01/12 11:30am MARTHA DUARTE MD Departed Emergency Room [facility] 12/28/17 2:43am 4:20am LIZ HUGGINS MD Departed Emergency Room [facility] 12/06/17 12:05am 12/06 5:31am MAYO CONNER MD
== END 2018-05-18 22:37 | disposition home or self-care (01) ==
LOC: ER 21:38
DX: L73.9 Follicular disorder, unspecified (principal); F31.9 Bipolar disorder, unspecified; Z85.42 Personal history of malignant neoplasm of other parts of uterus
CPT/HCPCS: 99282

== ENCOUNTER 2018-06-24 04:36 | Emergency (ER) | payer OTHER | END 2018-06-24 04:43 | disposition short-term general hospital (02) | LOC: ER 04:36 | DX: B02.9 Zoster without complications (principal) ==

== ENCOUNTER 2018-09-10 22:01 | Emergency (ER) | payer OTHER ==
[~2018-09-10] VITALS: Ht 154.9 cm; Wt 45.4 kg
[2018-09-11] MEDS ORDERED: SODIUM CHLORIDE 0.9% 1000ML 1,000 ML IV STA (00:12)
[2018-09-11] MEDS ORDERED: PANTOPRAZOLE 40 MG 10ML VIAL IV STA (00:12)
[2018-09-11 00:57] LABS: BASOPHILS % 0.2 % (0.0-1.0); EOSINOPHILS # (AUTO) 0.2 (0.0-0.4); EOSINOPHILS % 1.9 % (0.0-6.0); HEMATOCRIT 34.8 % (34.2-44.1); HEMOGLOBIN 11.2 g/dL (12.0-16.0); MEAN CORPUSCULAR HEMOGLOBIN 27.7 pg (28-32); MEAN CORPUSCULAR HGB CONC 32.2 g/dL (31-35); MEAN CORPUSCULAR VOLUME 85.9 fL (81-99); MONOCYTES # (AUTO) 0.8 (0.2-0.8); MONOCYTES % 6.7 % (4.4-11.3); NEUTROPHILS # (AUTO) 7.2 (2.1-6.9); NEUTROPHILS % 63.8 % (38.7-80.0); PLATELET COUNT 527 x10e3/uL (140-360); RED BLOOD COUNT 4.05 x10e6/uL (3.6-5.1); RED CELL DISTRIBUTION WIDTH 13.9 % (11.7-14.4)
[2018-09-11 01:20] LABS: ALANINE AMINOTRANSFERASE 21 IU/L (0-55); ALBUMIN 3.9 g/dL (3.5-5.0); ALBUMIN/GLOBULIN RATIO 1.1 (0.8-2.0); ALKALINE PHOSPHATASE 97 IU/L (40-150); AMYLASE 66 U/L (25-125); ANION GAP 17.6 mmol/L (8-16); BLOOD UREA NITROGEN 11 mg/dL (7-26); BUN/CREATININE RATIO 19 (6-25); CALCIUM 9.3 mg/dL (8.4-10.2); CARBON DIOXIDE 18 mmol/L (22-29); CHLORIDE 104 mmol/L (98-107); CREATININE, SERUM 0.59 mg/dL (0.57-1.11); EST GLOMERULAR FILTRATION RATE > 60 ML/MIN (60-); GLUCOSE 93 mg/dL (74-118); LIPASE 17 U/L (8-78); SODIUM 135 mmol/L (136-145)
[2018-09-11 01:24] LABS: POTASSIUM 4.6 mmol/L (3.5-5.1)
[2018-09-11 03:17] VITALS: BP 137/87
== END 2018-09-11 03:30 | disposition home or self-care (01) ==
LOC: ER 22:01
DX: R10.13 Epigastric pain (principal); R19.7 Diarrhea, unspecified; K29.50 Unspecified chronic gastritis without bleeding; C16.9 Malignant neoplasm of stomach, unspecified
CPT/HCPCS: 36415; 80053; 82150; 83690; 85025; 99283

== ENCOUNTER 2018-10-21 19:22 | Emergency (ER) | payer OTHER ==
[~2018-10-21] VITALS: Ht 154.9 cm; Wt 44.9 kg
== END 2018-10-22 00:30 | disposition left against medical advice (07) ==
LOC: ER 19:22
DX: F41.9 Anxiety disorder, unspecified (principal)

== ENCOUNTER 2018-11-13 06:20 | Emergency (ER) | payer OTHER ==
[~2018-11-13] VITALS: Ht 154.9 cm; Wt 44.9 kg
--- NOTE | 2018-11-13 06:29 | NUR ---
NO ANSWER TO TRIAGE
--- NOTE | 2018-11-13 06:39 | NUR ---
Attempts made to evaluate and triage patient, patient on cell phone. Patient wished to keep cell phone on during triage, requested that she terminate her phone call, patient refused. Patient wish to complete the phone call and be triaged after.
== END 2018-11-13 07:30 | disposition left against medical advice (07) ==
LOC: ER 06:20
DX: R10.11 Right upper quadrant pain (principal); R10.13 Epigastric pain; R07.89 Other chest pain; C16.9 Malignant neoplasm of stomach, unspecified; Z85.42 Personal history of malignant neoplasm of other parts of uterus
CPT/HCPCS: 99281

== ENCOUNTER 2018-11-29 06:03 | Emergency (ER) | payer OTHER ==
[~2018-11-29] VITALS: Ht 154.9 cm; Wt 44.9 kg
--- NOTE | 2018-11-29 08:01 | NUR ---
CALLED PT FOR ER MD TO EVAL, NO ANSWER.
--- NOTE | 2018-11-29 08:34 | NUR ---
CALLED PT, NO ANSWER. INFORMED CHARGE NURSE, MARY KNAPP OF THIS.
== END 2018-11-29 09:06 | disposition left against medical advice (07) ==
LOC: ER 06:03
DX: R52 Pain, unspecified (principal)

== ENCOUNTER 2020-02-01 11:13 | Emergency (ER) | payer OTHER ==
[~2020-02-01] VITALS: Ht 154.9 cm; Wt 44.9 kg
--- OUTSIDE RECORDS SUMMARY | 2020-02-01 11:17 | XMS REPORT ---
Author Author Nessa Kraus Organization [employer] Address Unknown Phone Unavailable Care Team Providers Care Clinical Quality Rn Name Role Phone Nessa Kraus CP Unavailable Allergies, Adverse Reactions, Alerts Substance Reaction Event Type Tramadol HCl chest pain Drug Allergy Sulfamethoxazole-TMP DS SOB Drug Allergy Penicillin G Sodium rash Drug Allergy toradol rash Non Drug Allergy Problems Problem Type Condition Code Onset Dates Condition Status Assessment Peptic ulcer K27.9 Active Problem Other chronic pain G89.29 Active Problem PTSD (post-traumatic stress disorder) F43.10 Active Problem Peptic ulcer K27.9 Active Problem Microscopic hematuria R31.29 Active Problem Atrophic vaginitis N95.2 Active Problem Tobacco abuse Z72.0 Active Problem Stress incontinence N39.3 Active Medications Medication Code System Code Instructions Start Date End Date Status Dosage Clonazepam [facility] 38887758087 2 MG Orally Once a day Active 1 tablet Lidocaine HCl [facility] 78632607036 4 % Mouth/Throat every 8 hours Dec 01, 2019 Active 10 ml Meloxicam [facility] 68698599419 15 MG Orally Once a day Oct 29, 2019 Active 1 tablet Sucralfate [facility] 29140196631 1 GM Orally before meals three times a day Dec 01, 2019 Active 1 tablet on an empty stomach Ambien [facility] 79748504181 5 MG Orally Once a day Active 1 tablet at bedtime Tylenol [facility] 38487467692 325 MG Orally daily Active 3-4 tablets Wellbutrin XL ND 41851247730 300 MG Orally Once a day Sep 23, 2019 Active 1 tablet in the morning Results No Known Results Summary Purpose [employer] Submission
--- OUTSIDE RECORDS SUMMARY | 2020-02-01 11:17 | XMS REPORT ---
Author Author Bill Rodriguez Organization [employer] Address Unknown Phone Unavailable Care Team Providers Care Registration Officer Name Role Phone Bill Rodriguez CP Unavailable Allergies No Known Allergies Problems Problem Type Condition Code Onset Dates Condition Status Problem PTSD (post-traumatic stress disorder) F43.10 Active Problem Tobacco abuse Z72.0 Active Problem Other chronic pain G89.29 Active Problem Atrophic vaginitis N95.2 Active Problem Stress incontinence N39.3 Active Problem Microscopic hematuria R31.29 Active Medications No Known Medications Results No Known Results Summary Purpose [employer] Submission
--- OUTSIDE RECORDS SUMMARY | 2020-02-01 11:17 | XMS REPORT ---
Author Author Cruz Eagle Organization [employer] Address Unknown Phone Unavailable Care Team Providers Care Rewrite Editor Name Role Phone Cruz Eagle CP Unavailable Allergies No Known Allergies Problems Problem Type Condition Code Onset Dates Condition Status Problem Other chronic pain G89.29 Active Problem PTSD (post-traumatic stress disorder) F43.10 Active Problem Peptic ulcer K27.9 Active Problem Microscopic hematuria R31.29 Active Problem Atrophic vaginitis N95.2 Active Problem Tobacco abuse Z72.0 Active Problem Stress incontinence N39.3 Active Medications No Known Medications Results No Known Results Summary Purpose [employer] Submission
--- OUTSIDE RECORDS SUMMARY | 2020-02-01 11:17 | XMS REPORT | Continuity of Care Document ---
Author Author [facility] Address [address] [place] [address] Care Team Providers Care Wax Bleacher Name Role Phone PROVIDER, NO PCP PCP Unavailable Marivel Hebert Rndphys Allergies, Adverse Reactions, Alerts No allergy information available. Medications No medication information available. Problem List No problem information available. Procedures Procedure Date Status CT Stone Protocol July 20, 2019 completed Relevant Diagnostic Tests and/or Laboratory Data Laboratory Results Test Date/Time Result Interp. Ref. Range Result Comment Sodium Level July 20, 2019 9:33am 137 mmol/L 136-145 Potassium Level July 20, 2019 9:33am 4.2 mmol/L 3.5-5.1 Chloride Level July 20, 2019 9:33am 106 mmol/L 98-107 Carbon Dioxide Level July 20, 2019 9:33am 22 mmol/L 22-29 Anion Gap July 20, 2019 9:33am 13 mmol/L 10-20 Blood Urea Nitrogen July 20, 2019 9:33am 16 mg/dL 9.8-20.1 Creatinine July 20, 2019 9:33am 0.64 mg/dL 0.6-1.1 Estimated GFR (MDRD) July 20, 2019 9:33am Greater than 90 Reference Range for Estimated GFR: Greater than 90 mL/min/1.73 m2 NOTE: The MDRD equation has not been validated for use with the elderly (over 70 years of age), women, patients with serious comorbid condition or persons with extremes of body size, muscle mass, or nutritional status. Glucose Level July 20, 2019 9:33am 98 mg/dL 70-105 Calcium Level July 20, 2019 9:33am 9.5 mg/dL 7.8-10.44 Total Bilirubin July 20, 2019 9:33am 0.2 mg/dL 0.2-1.2 Serum Total Protein July 20, 2019 9:33am 7.9 g/dL 6.0-8.3 Albumin July 20, 2019 9:33am 4.4 g/dL 3.5-5.0 Globulin July 20, 2019 9:33am 3.5 g/dL 2.4-3.5 Albumin/Globulin Ratio July 20, 2019 9:33am 1.3 g/dL 1.2-2.2 Alkaline Phosphatase July 20, 2019 9:33am 105 U/L 40-150 Aspartate Amino Transf (AST/SGOT) July 20, 2019 9:33am 16 U/L 5-34 Alanine Aminotransferase (ALT/SGPT) July 20, 2019 9:33am 12 U/L 8-55 Lipase July 20, 2019 9:33am 27 U/L 8-78 White Blood Count July 20, 2019 9:33am 8.5 thou/uL 4.8-10.8 Red Blood Count July 20, 2019 9:33am 4.47 mill/uL 4.20-5.40 Hemoglobin July 20, 2019 9:33am 13.3 g/dL 12.0-16.0 Hematocrit July 20, 2019 9:33am 39.6 % 36.0-47.0 Mean Corpuscular Volume July 20, 2019 9:33am 88.6 fL 78.0-98.0 Mean Corpuscular Hemoglobin July 20, 2019 9:33am 29.9 pg 27.0-31.0 Mean Corpuscular Hemoglobin Concent July 20, 2019 9:33am 33.7 g/dL 32.0-36.0 Red Cell Distribution Width July 20, 2019 9:33am 11.8 % 11.5-14.5 Platelet Count July 20, 2019 9:33am 559 thou/uL High 130-400 Mean Platelet Volume July 20, 2019 9:33am 6.6 fL Low 7.4-10.4 Neutrophils % July 20, 2019 9:33am 45.1 % 42.0-75.0 Lymphocytes % July 20, 2019 9:33am 41.9 % 21.0-51.0 Monocytes % July 20, 2019 9:33am 9.9 % 0.0-10.0 Eosinophils % July 20, 2019 9:33am 2.1 % 0.0-10.0 Basophils % July 20, 2019 9:33am 0.9 % 0.0-1.0 Neutrophils # July 20, 2019 9:33am 3.8 thou/uL 1.40-6.50 Lymphocytes # July 20, 2019 9:33am 3.6 thou/uL High 1.20-3.40 Monocytes # July 20, 2019 9:33am 0.8 thou/uL High 0.11-0.59 Eosinophils # July 20, 2019 9:33am 0.2 thou/uL 0.0-0.7 Basophils # July 20, 2019 9:33am 0.1 thou/uL 0.0-0.2 Urine Color July 20, 2019 9:29am Yellow Urine Clarity July 20, 2019 9:29am Clear Urine Specific [place] July 20, 2019 9:29am 1.033 1.002-1.036 Urine pH July 20, 2019 9:29am 6.0 5.0-9.0 Urine Leukocyte Esterase July 20, 2019 9:29am Negative [place]/uL Urine Nitrite July 20, 2019 9:29am Negative Urine Protein July 20, 2019 9:29am 10 mg/dL Urine Glucose (UA) July 20, 2019 9:29am Normal mg/dL Urine Ketones July 20, 2019 9:29am Negative mg/dL Urine Urobilinogen July 20, 2019 9:29am Normal mg/dL Urine Bilirubin July 20, 2019 9:29am Negative Urine Blood July 20, 2019 9:29am 1+ Urine RBC July 20, 2019 9:29am 7-10 HPF Urine WBC July 20, 2019 9:29am 0-3 HPF Urine Squamous Epithelial Cells July 20, 2019 9:29am 4-6 HPF Urine Bacteria July 20, 2019 9:29am None Seen HPF Urine Hyaline Casts July 20, 2019 9:29am 0-3 LPF Hospital Discharge Instructions No known hospital discharge instructions. Encounters Encounter Facility Location Admit Date Discharge Date Attending Provider Departed Emergency [facility] EMERGENCY SERVICES July 20, 2019 8:36am July 20, 2019 11:47am Functional Status No known functional status. Immunizations No known immunizations. Payers Payer Name Policy Type Covered Constitution Party Covered Constitution Party Id Relationship Subscriber Subscriber Id [employer] Medicaid [place] HARTMAN [id number] SELF TEX DEVAN [id number] Plan of Care No known plan of care. Social History No known social history. Vital Signs No known vital signs results.
--- OUTSIDE RECORDS SUMMARY | 2020-02-01 11:17 | XMS REPORT | Continuity of Care Document ---
Author Author [facility] Address [address] [place] [address] Care Team Providers Care Air Traffic Control Equipment Repairer Name Role Phone PROVIDER, NO PCP PCP Unavailable Sharer, Poornima Hoodhyblack Allergies, Adverse Reactions, Alerts No allergy information available. Medications No medication information available. Problem List No problem information available. Procedures Procedure Date Status XR Chest 1 View Portable April 15, [address] Brain WO Con April 15, 2019 completed EKG 12 Lead in Emergency Room April 15, 2019 active Relevant Diagnostic Tests and/or Laboratory Data Laboratory Results Test Date/Time Result Interp. Ref. Range Result Comment Sodium Level April 15, 2019 5:34pm 141 mmol/L 136-145 Potassium Level April 15, 2019 5:34pm 4.1 mmol/L 3.5-5.1 Chloride Level April 15, 2019 5:34pm 111 mmol/L High 98-107 Carbon Dioxide Level April 15, 2019 5:34pm 19 mmol/L Low 22-29 Anion Gap April 15, 2019 5:34pm 15 mmol/L 10-20 Blood Urea Nitrogen April 15, 2019 5:34pm 11 mg/dL 9.8-20.1 Creatinine April 15, 2019 5:34pm 0.64 mg/dL 0.6-1.1 Estimated GFR (MDRD) April 15, 2019 5:34pm Greater than 90 Reference Range for Estimated GFR: Greater than 90 mL/min/1.73 m2 NOTE: The MDRD equation has not been validated for use with the elderly (over 70 years of age), women, patients with serious comorbid condition or persons with extremes of body size, muscle mass, or nutritional status. Glucose Level April 15, 2019 5:34pm 115 mg/dL High 70-105 Calcium Level April 15, 2019 5:34pm 9.1 mg/dL 7.8-10.44 Total Bilirubin April 15, 2019 5:34pm Less than 0.2 mg/dL Low 0.2-1.2 Serum Total Protein April 15, 2019 5:34pm 7.6 g/dL 6.0-8.3 Albumin April 15, 2019 5:34pm 4.2 g/dL 3.5-5.0 Globulin April 15, 2019 5:34pm 3.4 g/dL 2.4-3.5 Albumin/Globulin Ratio April 15, 2019 5:34pm 1.2 g/dL 1.2-2.2 Alkaline Phosphatase April 15, 2019 5:34pm 95 U/L 40-150 Aspartate Amino Transf (AST/SGOT) April 15, 2019 5:34pm 19 U/L 5-34 Creatine Kinase April 15, 2019 5:34pm 88 U/L 29-168 Troponin I April 15, 2019 5:34pm Less than 0.010 ng/mL Reference Range 0.00 - 0.028 ng/mL Negative 0.029 - 0.29 ng/mL Indeterminate Greater or Equal to 0.3 ng/mL Strongly suggests MD Alanine Aminotransferase (ALT/SGPT) April 15, 2019 5:34pm 13 U/L 8-55 White Blood Count April 15, 2019 5:34pm 8.8 thou/uL 4.8-10.8 Red Blood Count April 15, 2019 5:34pm 4.29 mill/uL 4.20-5.40 Hemoglobin April 15, 2019 5:34pm 12.7 g/dL 12.0-16.0 Hematocrit April 15, 2019 5:34pm 37.3 % 36.0-47.0 Mean Corpuscular Volume April 15, 2019 5:34pm 86.9 fL 78.0-98.0 Mean Corpuscular Hemoglobin April 15, 2019 5:34pm 29.6 pg 27.0-31.0 Mean Corpuscular Hemoglobin Concent April 15, 2019 5:34pm 34.0 g/dL 32.0-36.0 Red Cell Distribution Width April 15, 2019 5:34pm 12.4 % 11.5-14.5 Platelet Count April 15, 2019 5:34pm 391 thou/uL 130-400 Mean Platelet Volume April 15, 2019 5:34pm 7.3 fL Low 7.4-10.4 Neutrophils % April 15, 2019 5:34pm 39.9 % Low 42.0-75.0 Lymphocytes % April 15, 2019 5:34pm 46.8 % 21.0-51.0 Monocytes % April 15, 2019 5:34pm 10.4 % High 0.0-10.0 Eosinophils % April 15, 2019 5:34pm 2.3 % 0.0-10.0 Basophils % April 15, 2019 5:34pm 0.6 % 0.0-1.0 Neutrophils # April 15, 2019 5:34pm 3.5 thou/uL 1.40-6.50 Lymphocytes # April 15, 2019 5:34pm 4.1 thou/uL High 1.20-3.40 Monocytes # April 15, 2019 5:34pm 0.9 thou/uL High 0.11-0.59 Eosinophils # April 15, 2019 5:34pm 0.2 thou/uL 0.0-0.7 Basophils # April 15, 2019 5:34pm 0.1 thou/uL 0.0-0.2 Urine Color April 15, 2019 8:02pm YELLOW Urine Clarity April 15, 2019 8:02pm CLEAR Urine Specific [place] April 15, 2019 8:02pm 1.015 1.002-1.036 Urine pH April 15, 2019 8:02pm 7.0 5.0-9.0 Urine Leukocyte Esterase April 15, 2019 8:02pm Negative Urine Nitrite April 15, 2019 8:02pm Negative Urine Protein April 15, 2019 8:02pm Negative mg/dL Urine Glucose (UA) April 15, 2019 8:02pm Negative mg/dL Urine Ketones April 15, 2019 8:02pm Negative mg/dL Urine Urobilinogen April 15, 2019 8:02pm 0.2 mg/dL Urine Bilirubin April 15, 2019 8:02pm Negative Urine Blood April 15, 2019 8:02pm Negative Hospital Discharge Instructions No known hospital discharge instructions. Encounters Encounter Facility Location Admit Date Discharge Date Attending Provider Departed Emergency [facility] EMERGENCY SERVICES April 15, 2019 4:56pm April 15, 2019 9:05pm Functional Status No known functional status. Immunizations No known immunizations. Payers Payer Name Policy Type Covered Libertarian Covered Libertarian Id Relationship Subscriber Subscriber Id [employer] Medicaid [place] AMADOZ [id number] SELF TEX AMADOZ [id number] Plan of Care No known plan of care. Social History No known social history. Vital Signs No known vital signs results.
--- OUTSIDE RECORDS SUMMARY | 2020-02-01 11:17 | XMS REPORT | Continuity of Care Document ---
Author Author [facility] Address [address] [place] [address] Care Team Providers Care Dragline Engineer Name Role Phone PROVIDER, NO PCP PCP Unavailable Seamus Davis Rndphys Allergies, Adverse Reactions, Alerts No allergy information available. Medications No medication information available. Problem List No problem information available. Procedures Procedure Date Status Stool Occult Blood (MARCOS) March 03, [address] Abdomen Pelvis WO Con March 03, 2019 completed XR Chest 1 View Portable March 03, 2019 completed EKG 12 Lead in Emergency Room March 03, 2019 active Relevant Diagnostic Tests and/or Laboratory Data Laboratory Results Test Date/Time Result Interp. Ref. Range Result Comment Sodium Level March 03, 2019 10:30am 139 mmol/L 136-145 Potassium Level March 03, 2019 10:30am 4.4 mmol/L 3.5-5.1 Chloride Level March 03, 2019 10:30am 107 mmol/L 98-107 Carbon Dioxide Level March 03, 2019 10:30am 19 mmol/L Low 22-29 Anion Gap March 03, 2019 10:30am 17 mmol/L 10-20 Blood Urea Nitrogen March 03, 2019 10:30am 11 mg/dL 9.8-20.1 Creatinine March 03, 2019 10:30am 0.65 mg/dL 0.6-1.1 Estimated GFR (MDRD) March 03, 2019 10:30am Greater than 90 Reference Range for Estimated GFR: Greater than 90 mL/min/1.73 m2 NOTE: The MDRD equation has not been validated for use with the elderly (over 70 years of age), women, patients with serious comorbid condition or persons with extremes of body size, muscle mass, or nutritional status. Glucose Level March 03, 2019 10:30am 93 mg/dL 70-105 Calcium Level March 03, 2019 10:30am 9.9 mg/dL 7.8-10.44 Total Bilirubin March 03, 2019 10:30am Less than 0.2 mg/dL Low 0.2-1.2 Serum Total Protein March 03, 2019 10:30am 8.3 g/dL 6.0-8.3 Albumin March 03, 2019 10:30am 4.4 g/dL 3.5-5.0 Globulin March 03, 2019 10:30am 3.9 g/dL High 2.4-3.5 Albumin/Globulin Ratio March 03, 2019 10:30am 1.1 g/dL Low 1.2-2.2 Alkaline Phosphatase March 03, 2019 10:30am 102 U/L 40-150 Aspartate Amino Transf (AST/SGOT) March 03, 2019 10:30am 21 U/L 5-34 Creatine Kinase March 03, 2019 10:30am 78 U/L 29-168 Troponin I March 03, 2019 10:30am 0.015 ng/mL Reference Range 0.00 - 0.028 ng/mL Negative 0.029 - 0.29 ng/mL Indeterminate Greater or Equal to 0.3 ng/mL Strongly suggests [place] Alanine Aminotransferase (ALT/SGPT) March 03, 2019 10:30am 12 U/L 8-55 Lipase March 03, 2019 10:30am 24 U/L 8-78 Urine Cannabinoids Screen March 03, 2019 10:28am Detected High Urine Phencyclidine Screen March 03, 2019 10:28am Not Detected Urine Cocaine Metabolite Screen March 03, 2019 10:28am Not Detected Urine Methamphetamines Screen March 03, 2019 10:28am Not Detected Urine Opiates Screen March 03, 2019 10:28am Not Detected Urine Amphetamines Screen March 03, 2019 10:28am Not Detected Urine Benzodiazepines Screen March 03, 2019 10:28am Not Detected Ur Tricyclic Antidepressants Screen March 03, 2019 10:28am Not Detected Urine Methadone Screen March 03, 2019 10:28am Not Detected Urine Barbiturates Screen March 03, 2019 10:28am Not Detected Urine Oxycodone Screen March 03, 2019 10:28am Not Detected Urine Propoxyphene Screen March 03, 2019 10:28am Not Detected Drug Screen Comment March 03, 2019 10:28am The [employer] Profile-V Panel for Qualitative Drugs of Abuse assays are for presumptive screening testing only. The drug class and detection limits are as follows: Drug Class Detection Limit Amphetamine 500 ng/mL* Barbiturates 200 ng/mL Benzodiazepines 150 ng/mL* Cocaine 150 ng/mL* Methamphetamine 500 ng/mL* Methadone 200 ng/mL* Opiates 100 ng/mL* Oxycodone 100 ng/mL PCP 25 ng/mL Propoxyphene 300 ng/mL Tricyclic Antidepressants 300 ng/mL Cannabinoids (THC) 50 ng/mL Tests which yield a presumptive positive result must be tested using a more specific alternate chemical method in order to obtain a confirmed analytical result. Additional confirmation and identification may be ordered on a routine basis, if desired. Presumptive positive urines are held for two weeks. White Blood Count March 03, 2019 10:30am 7.7 thou/uL 4.8-10.8 Red Blood Count March 03, 2019 10:30am 5.09 mill/uL 4.20-5.40 Hemoglobin March 03, 2019 10:30am 14.5 g/dL 12.0-16.0 Hematocrit March 03, 2019 10:30am 44.8 % 36.0-47.0 Mean Corpuscular Volume March 03, 2019 10:30am 88.1 fL 78.0-98.0 Mean Corpuscular Hemoglobin March 03, 2019 10:30am 28.5 pg 27.0-31.0 Mean Corpuscular Hemoglobin Concent March 03, 2019 10:30am 32.3 g/dL 32.0-36.0 Red Cell Distribution Width March 03, 2019 10:30am 13.1 % 11.5-14.5 Platelet Count March 03, 2019 10:30am 470 thou/uL High 130-400 Mean Platelet Volume March 03, 2019 10:30am 7.1 fL Low 7.4-10.4 Neutrophils % March 03, 2019 10:30am 51.9 % 42.0-75.0 Lymphocytes % March 03, 2019 10:30am 36.7 % 21.0-51.0 Monocytes % March 03, 2019 10:30am 8.0 % 0.0-10.0 Eosinophils % March 03, 2019 10:30am 1.6 % 0.0-10.0 Basophils % March 03, 2019 10:30am 1.8 % High 0.0-1.0 Neutrophils # March 03, 2019 10:30am 4.0 thou/uL 1.40-6.50 Lymphocytes # March 03, 2019 10:30am 2.8 thou/uL 1.20-3.40 Monocytes # March 03, 2019 10:30am 0.6 thou/uL High 0.11-0.59 Eosinophils # March 03, 2019 10:30am 0.1 thou/uL 0.0-0.7 Basophils # March 03, 2019 10:30am 0.1 thou/uL 0.0-0.2 Urine Color March 03, 2019 10:28am Yellow Urine Clarity March 03, 2019 10:28am Clear Urine Specific [place] March 03, 2019 10:28am 1.020 1.005-1.030 Urine pH March 03, 2019 10:28am 7.0 5.0-9.0 Urine Leukocyte Esterase March 03, 2019 10:28am Negative Urine Nitrite March 03, 2019 10:28am Negative Urine Protein March 03, 2019 10:28am Negative mg/dL Urine Glucose (UA) March 03, 2019 10:28am Negative mg/dL Urine Ketones March 03, 2019 10:28am Negative mg/dL Urine Urobilinogen March 03, 2019 10:28am 0.2 mg/dL Urine Bilirubin March 03, 2019 10:28am Negative Urine Blood March 03, 2019 10:28am Negative Microbiology Results Procedure Source Result Collection Date/Time Result Date/Time Stool Occult Blood (MARCOS) Stool No results entered March 03, 2019 12:30pm Hospital Discharge Instructions No known hospital discharge instructions. Encounters Encounter Facility Location Admit Date Discharge Date Attending Provider Departed Emergency [facility] March 03, 2019 10:10am March 03, 2019 3:01pm Functional Status No known functional status. Immunizations No known immunizations. Payers Payer Name Policy Type Covered Republican Covered Republican Id Relationship Subscriber Subscriber Id [employer] Medicaid [place] BOGGSIREZ [id number] SELF TEX BOGGSIREZ [id number] Plan of Care No known plan of care. Social History No known social history. Vital Signs No known vital signs results.
--- OUTSIDE RECORDS SUMMARY | 2020-02-01 11:17 | XMS REPORT ---
Author Author Bill Rodriguez Organization [employer] Address Unknown Phone Unavailable Care Team Providers Care Plate Mill Mill Hand Name Role Phone Bill Rodriguez CP Unavailable Allergies, Adverse Reactions, Alerts Substance Reaction Event Type Tramadol HCl chest pain Drug Allergy Sulfamethoxazole-TMP DS SOB Drug Allergy Penicillin G Sodium rash Drug Allergy toradol rash Non Drug Allergy Problems Problem Type Condition Code Onset Dates Condition Status Assessment Flank pain R10.9 Active Problem PTSD (post-traumatic stress disorder) F43.10 Active Problem Tobacco abuse Z72.0 Active Problem Other chronic pain G89.29 Active Problem Atrophic vaginitis N95.2 Active Problem Stress incontinence N39.3 Active Problem Microscopic hematuria R31.29 Active Medications Medication Code System Code Instructions Start Date End Date Status Dosage Tylenol [facility] 57148959452 325 MG Orally daily Active 3-4 tablets Ambien ND 18002338231 5 MG Orally Once a day Active 1 tablet at bedtime Wellbutrin XL ND 03467550610 300 MG Orally Once a day Sep 23, 2019 Active 1 tablet in the morning Meloxicam [facility] 28261525749 15 MG Orally Once a day Oct 29, 2019 Active 1 tablet Clonazepam ND 68708606571 2 MG Orally Once a day Active 1 tablet Results No Known Results Summary Purpose [employer] Submission
[2020-02-01 12:44] LABS: BASOPHILS # (AUTO) 0.1 (0.0-0.1); BASOPHILS % 0.4 % (0.0-1.0); EOSINOPHILS # (AUTO) 0.1 (0.0-0.4); EOSINOPHILS % 0.5 % (0.0-6.0); HEMATOCRIT 39.7 % (34.2-44.1); HEMOGLOBIN 12.5 g/dL (12.0-16.0); LYMPHOCYTES # (AUTO) 2.9 (1.0-3.2); LYMPHOCYTES % 25.2 % (18.0-39.1); MEAN CORPUSCULAR HGB CONC 31.5 g/dL (31-35); MEAN CORPUSCULAR VOLUME 88.8 fL (81-99); MONOCYTES # (AUTO) 0.8 (0.2-0.8); MONOCYTES % 6.6 % (4.4-11.3); NEUTROPHILS # (AUTO) 7.8 (2.1-6.9); PLATELET COUNT 699 x10e3/uL (140-360); RED BLOOD COUNT 4.47 x10e6/uL (3.6-5.1); RED CELL DISTRIBUTION WIDTH 13.2 % (11.7-14.4)
[2020-02-01 12:58] LABS: INR 0.91; PROTHROMBIN TIME 12.8 seconds (11.9-14.5)
[2020-02-01 13:04] LABS: ALANINE AMINOTRANSFERASE 13 IU/L (0-55); ALBUMIN 3.9 g/dL (3.5-5.0); ALBUMIN/GLOBULIN RATIO 0.9 (0.8-2.0); ALKALINE PHOSPHATASE 118 IU/L (40-150); BLOOD UREA NITROGEN 8 mg/dL (7-26); BUN/CREATININE RATIO 12 (6-25); CALCIUM 9.8 mg/dL (8.4-10.2); CARBON DIOXIDE 26 mmol/L (22-29); CHLORIDE 105 mmol/L (98-107); CREATINE KINASE 75 IU/L (29-168); CREATININE, SERUM 0.65 mg/dL (0.57-1.11); EST GLOMERULAR FILTRATION RATE > 60 ML/MIN (60-); GLUCOSE 98 mg/dL (74-118); SODIUM 139 mmol/L (136-145)
[2020-02-01 13:18] LABS: CLARITY,URINE SL CLOUDY (CLEAR); COLOR,URINE YELLOW (YELLOW)
[2020-02-01 13:19] LABS: BILIRUBIN,URINE NEGATIVE (NEGATIVE); KETONES,URINE NEGATIVE (NEGATIVE); LEUKOCYTE ESTERASE ,URINE NEGATIVE (NEGATIVE); NITRITE,URINE NEGATIVE (NEGATIVE); PROTEIN,URINE DIPSTICK NEGATIVE (NEGATIVE); URINE UROBILINOGEN 0.2 mg/dL (0.2 - 1)
[2020-02-01 13:29] LABS: STREPTOCOCCUS GRP A ANTIGEN NEGATIVE (NEGATIVE)
[2020-02-01 13:34] LABS: INFLUENZAE A&B ANTIGEN (RAPID) NEGATIVE (NEGATIVE)
[2020-02-01 13:38] LABS: BACTERIA,URINE MODERATE /HPF; EPITHELIAL CELLS,URINE MANY /LPF
--- NOTE | 2020-02-01 15:01 | Diagnostic Imaging Report ---
EXAM: CHEST 2 VIEWS DATE: 02/01/2020 12:27 PM INDICATION: Fever, cough COMPARISON: None available. FINDINGS: The trachea is midline. The lungs are symmetrically expanded without evidence for large focal consolidation, pneumothorax, or significant pleural effusion. The cardiomediastinal silhouette and pulmonary vasculature are within normal limits. No acute osseous abnormality is identified. The surrounding soft tissues are unremarkable. IMPRESSION: No acute cardiopulmonary process identified. Signed by: Dr. Narciso Hathaway MD on 02/01/2020 2:58 PM
== END 2020-02-01 16:27 | disposition home or self-care (01) ==
LOC: ER 11:13
DX: R50.9 Fever, unspecified (principal); R05 Cough; J02.0 Streptococcal pharyngitis; F31.9 Bipolar disorder, unspecified; Z85.42 Personal history of malignant neoplasm of other parts of uterus
CPT/HCPCS: 36415; 71046; 80053; 81001; 82550; 82553; 83518; 83605; 84484; 85025; 85610; 85730; 87040; 87070; 87086; 87400; 93005; 99283

== ENCOUNTER 2020-02-15 13:39 | Emergency (ER) | payer OTHER ==
[~2020-02-15] VITALS: Ht 154.9 cm; Wt 44.9 kg
--- NOTE | 2020-02-15 15:02 | Diagnostic Imaging Report ---
TECHNIQUE: Frontal, oblique, and lateral views each of the right ankle and right foot. INDICATION: 59-year-old woman with dorsal foot pain. COMPARISON: Right ankle and right foot radiographs 01/24/2018. FINDINGS: No acute fractures or dislocations. No significant change in fragmentation and sclerosis of the calcaneus. Joint spaces are otherwise within normal limits. Soft tissue swelling of the heel. IMPRESSION: No significant change in deformity of the right calcaneus. Underlying osteomyelitis cannot be excluded. If indicated, MRI may be obtained for further evaluation. Signed by: Cathie Pineda MD on 02/15/2020 2:59 PM
[2020-02-15 15:40] VITALS: BP 140/84
== END 2020-02-15 15:41 | disposition home or self-care (01) ==
LOC: ER 13:39
DX: S93.491A Sprain of other ligament of right ankle, initial encounter (principal); X50.1XXA Overexertion from prolonged static or awkward postures, initial encounter; Y92.008 Other place in unspecified non-institutional (private) residence as the place of occurrence of the external cause
CPT/HCPCS: 99283

== ENCOUNTER 2021-02-19 20:12 | Emergency (ER) | payer OTHER ==
[~2021-02-19] VITALS: Ht 154.9 cm; Wt 44.9 kg
[2021-02-19 21:14] LABS: BASOPHILS % 0.5 % (0.0-1.0); EOSINOPHILS # (AUTO) 0.1 (0.0-0.4); EOSINOPHILS % 1.2 % (0.0-6.0); HEMATOCRIT 35.9 % (34.2-44.1); HEMOGLOBIN 11.4 g/dL (12.0-16.0); LYMPHOCYTES # (AUTO) 3.7 (1.0-3.2); LYMPHOCYTES % 48.2 % (18.0-39.1); MEAN CORPUSCULAR HEMOGLOBIN 27.2 pg (28-32); MEAN CORPUSCULAR HGB CONC 31.8 g/dL (31-35); MEAN CORPUSCULAR VOLUME 85.7 fL (81-99); MONOCYTES # (AUTO) 0.7 (0.2-0.8); MONOCYTES % 9.6 % (4.4-11.3); NEUTROPHILS # (AUTO) 3.1 (2.1-6.9); NEUTROPHILS % 40.4 % (38.7-80.0); PLATELET COUNT 627 x10e3/uL (140-360); RED BLOOD COUNT 4.19 x10e6/uL (3.6-5.1)
[2021-02-19 21:26] LABS: INR 1.04; PROTHROMBIN TIME 14.2 seconds (11.9-14.5)
[2021-02-19 21:37] LABS: ALANINE AMINOTRANSFERASE 35 IU/L (0-55); ALBUMIN 3.6 g/dL (3.5-5.0); ALKALINE PHOSPHATASE 101 IU/L (40-150); ANION GAP 13.3 mmol/L (8-16); BLOOD UREA NITROGEN 15 mg/dL (7-26); BUN/CREATININE RATIO 21 (6-25); CALCIUM 8.5 mg/dL (8.4-10.2); CARBON DIOXIDE 27 mmol/L (22-29); CHLORIDE 107 mmol/L (98-107); CREATININE, SERUM 0.73 mg/dL (0.57-1.11); EST GLOMERULAR FILTRATION RATE > 60 ML/MIN (60-); GLUCOSE 119 mg/dL (74-118); POTASSIUM 3.3 mmol/L (3.5-5.1); SODIUM 144 mmol/L (136-145)
== END 2021-02-19 23:00 | disposition left against medical advice (07) ==
LOC: ER 22:04
DX: R10.30 Lower abdominal pain, unspecified (principal); K92.1 Melena; R11.0 Nausea; F41.9 Anxiety disorder, unspecified; F31.9 Bipolar disorder, unspecified; Z85.42 Personal history of malignant neoplasm of other parts of uterus
CPT/HCPCS: 36415; 80053; 85025; 85610; 85730

== ENCOUNTER 2021-04-13 00:22 | Emergency (ER) | payer MEDICARE, OTHER ==
[~2021-04-13] VITALS: Ht 154.9 cm; Wt 44.9 kg
== END 2021-04-13 01:30 | disposition home or self-care (01) ==
LOC: ER 01:07
DX: G89.29 Other chronic pain (principal); K21.9 Gastro-esophageal reflux disease without esophagitis; F41.9 Anxiety disorder, unspecified; F31.9 Bipolar disorder, unspecified; Z85.42 Personal history of malignant neoplasm of other parts of uterus; F17.210 Nicotine dependence, cigarettes, uncomplicated
CPT/HCPCS: 99282

== ENCOUNTER 2021-05-09 20:26 | Emergency (ER) | payer OTHER ==
[~2021-05-09] VITALS: Ht 152.4 cm; Wt 45.4 kg
== END 2021-05-09 23:30 | disposition home or self-care (01) ==
LOC: ER 21:54
DX: R10.30 Lower abdominal pain, unspecified (principal); Z76.5 Malingerer [conscious simulation]; F41.9 Anxiety disorder, unspecified; F31.9 Bipolar disorder, unspecified; Z98.0 Intestinal bypass and anastomosis status; Z85.42 Personal history of malignant neoplasm of other parts of uterus
CPT/HCPCS: 99282

== ENCOUNTER 2021-06-07 23:41 | Emergency (ER) | payer OTHER ==
[~2021-06-07] VITALS: Ht 154.9 cm; Wt 45.4 kg
== END 2021-06-08 01:39 | disposition home or self-care (01) ==
LOC: ER 06-08 00:09
DX: M54.5 Low back pain (principal); R10.9 Unspecified abdominal pain; G89.29 Other chronic pain; F31.9 Bipolar disorder, unspecified; Z85.42 Personal history of malignant neoplasm of other parts of uterus; Z98.0 Intestinal bypass and anastomosis status
CPT/HCPCS: 72100; 99283

== ENCOUNTER 2021-06-17 18:46 | Emergency (ER) | payer OTHER ==
[~2021-06-17] VITALS: Ht 154.9 cm; Wt 45.4 kg
== END 2021-06-18 04:00 | disposition home or self-care (01) ==
LOC: ER 06-18 02:25
DX: R10.9 Unspecified abdominal pain (principal); Y04.2XXA Assault by strike against or bumped into by another person, initial encounter
CPT/HCPCS: 99282